=== PATIENT | female | born 1980 | race Caucasian/White ===

== ENCOUNTER 2017-06-21 12:41 | Outpatient (CLI) | payer BC ==
--- NOTE | 2017-06-21 15:22 | MRI ---
MRI LEFT KNEE WITHOUT CONTRAST: Date: 06/21/17 CLINICAL HISTORY: M25.562. Dislocated left knee in March. Left knee pain ever since. COMPARISON: Radiographs dated 03/16/17. FINDINGS: Medial Meniscus: Intact. Lateral Meniscus: Intact. ACL, PCL, and LCL: Intact. MCL: Healing low grade partial tear proximal fibers. Medial retinaculum is also partially torn at the med ial femoral condyle, as well as high signal at the insertion of the medial patella. Extensor Mechanism: Quadriceps tendon and patellar tendon are intact. Bones: There is an impaction fracture of the lateral femoral condyle from transient lateral patellar disloc ation. Also, impaction fracture of medial patellar facet. No subchondral bone plate irregularity. Ov erlying cartilage is intact. There is also a fracture of the articular surface of the lateral most l ateral femoral condyle with edema. This is of the suprameniscal lateral femoral condyle. This appear s somewhat separate from the lateral femoral condylar contusion. There also appears to be a healing impacted subchondral fracture of the lateral tibial plateau. This is linear in nature and best seen on series 5, image 16. Cartilage: Patellofemoral compartment: Intact. Medial compartment: Intact. Lateral compartment: Intact. IMPRESSION: 1. Evidence of reduced healing lateral transient patellar dislocation with mild edema of the medial retinaculum and MPFL, along with healing contusions of the medial patellar facet and the lateral fe moral condyle. 2. Fracture of the cortex of the lateral most lateral femoral condyle which is suprameniscal at the level of the lateral meniscal body with mild underlying edema. There is also a healing impaction fr acture of the lateral tibial plateau deep to the subchondral bone plate. POS: [facility]
== END 2017-06-21 12:42 | disposition home or self-care (01) ==
LOC: SCSMRI 12:41
PROVIDERS: ATTEND Orthopaedic Surgery
DX: M25.662 Stiffness of left knee, not elsewhere classified (principal); S83.015D Lateral dislocation of left patella, subsequent encounter; S72.422D Displaced fracture of lateral condyle of left femur, subsequent encounter for closed fracture with routine healing; S82.142D Displaced bicondylar fracture of left tibia, subsequent encounter for closed fracture with routine healing

== ENCOUNTER 2018-01-24 17:29 | Emergency (ER) | payer BC ==
[2018-01-24 18:35] LABS: #Eosinphils 0.1 thou/uL (0.0-0.7); #Lymphocytes 3.3 thou/uL (1.20-3.40); #Monocytes 1.2 thou/uL (0.11-0.59); #Neutrophils 6.3 thou/uL (1.40-6.50); %Basophils 0.3 % (0.0-1.0); %Eosinophils 0.8 % (0.0-10.0); %Lymphocytes 30.2 % (21.0-51.0); %Monocytes 11.3 % (0.0-10.0); %Neutrophils 57.4 % (42.0-75.0); Hemoglobin 15.6 g/dL (12.0-16.0); Mean Corpuscular HGB CONC 34.2 g/dL (32.0-36.0); Mean Corpuscular Hemoglobin 28.1 pg (27.0-31.0); Mean Platelet Volume 6.3 fL (7.4-10.4); Platelet Count 540 thou/uL (130-400); RBC Distribution Width 12.3 % (11.5-14.5); Red Blood Cell (RBC) Count 5.55 mill/uL (4.20-5.40); White Blood Cell (WBC) Count 10.9 thou/uL (4.8-10.8)
[2018-01-24] MEDS ORDERED: Meclizine HCl 25 MG TAB ONE (18:35)
[2018-01-24] MEDS ORDERED: Acetaminophen 500 MG TAB ONE (18:42)
[2018-01-24] MEDS ORDERED: Magnesium Sulfate 2 GM/100 ML BAG ONE (18:42)
[2018-01-24] MEDS ORDERED: methylPREDNISolone Sod Succ/PF 125 MG/2 ML VIAL ONE (18:42)
[2018-01-24] MEDS ORDERED: Sterile Water 10 ML ONE (18:43)
[2018-01-24 18:53] LABS: BHCG - Serum Negative (NEGATIVE); Pregs Control Background? CLEAR/WHITE (CLR/WHITE); Pregs Control Bar Appear? YES (CONTROL BAR)
[2018-01-24 18:56] LABS: ALT (SGPT) 13 U/L (8-55); AST (SGOT) 14 U/L (5-34); Albumin 4.3 g/dL (3.5-5.0); Alkaline Phosphatase 74 U/L (40-150); Anion Gap 16 mmol/L (10-20); BUN (Urea Nitrogen) 14 mg/dL (7.0-18.7); Bilirubin, Total 0.2 mg/dL (0.2-1.2); Calc. Creatinine Clearance 0 mL/min (70-130); Calcium 9.8 mg/dL (7.8-10.44); Carbon Dioxide 23 mmol/L (22-29); Chloride 101 mmol/L (98-107); Estimated GFR-MDRD 88; Globulin 3.9 g/dL (2.4-3.5); Glucose 95 mg/dL (70-105); Potassium 3.7 mmol/L (3.5-5.1); Protein, Total 8.2 g/dL (6.0-8.3); Sodium 136 mmol/L (136-145)
[2018-01-24 19:13] LABS: Bilirubin Negative (Negative); Blood, Urine Moderate (Negative); Clarity CLEAR (Clear); Glucose, Urine (Dipstick) Negative (Negative); Leukocyte Negative (Negative); Nitrite Negative (Negative); Protein, Urine (Dipstick) Negative (Neg-Trace); Specific Gravity, Urine 1.007 (1.002-1.036); Urobilinogen 0.2 mg/dL (0.2-1.0)
[2018-01-24 19:18] LABS: Bacteria/HPF None Seen HPF (None Seen); Hyaline Casts/LPF 0-3 HYALINE CAST LPF (0-3 Hyaline); Squamous Epithelial None Seen HPF (0-3); WBC/HPF None Seen HPF (0-3)
--- NOTE | 2018-01-24 19:56 | CT ---
CT BRAIN NONCONTRAST: 01/24/18 HISTORY: 37-year-old female with dizziness and headache. FINDINGS: The ventricles are normal in size and configuration. There is no midline shift or any other mass eff ect. There is no evidence of acute intracranial hemorrhage, large cortical infarct, or extraaxial fl uid collection. The hamlin matter /white matter differentiation is maintained. The calvarium is intac t. The tympanomastoid cavities, and the upper portions of the paranasal sinuses included in these im ages, are grossly clear. IMPRESSION: Normal. jn [] POS: [facility]
[2018-01-24] MEDS ORDERED: Ketorolac Tromethamine 30 MG/ML VIAL ONE ×2 (20:45)
== END 2018-01-24 21:00 | disposition home or self-care (01) ==
LOC: ERS 17:29
DX: R51 Headache (principal); R42 Dizziness and giddiness; E03.9 Hypothyroidism, unspecified; F32.9 Major depressive disorder, single episode, unspecified; F41.9 Anxiety disorder, unspecified; Z79.899 Other long term (current) drug therapy
CPT/HCPCS: 36415; 70450; 80053; 81003; 81015; 84703; 85025; 93005; 96361; 96365; 96375; A4216; J1885; J2930; J3475

== ENCOUNTER 2018-06-19 07:03 | Day surgery (SDC) | payer BC ==
[2018-06-19 10:24] LABS: CSF, Glucose 55 mg/dl (40-70); CSF, Protein 29 mg/dL (15-40)
[2018-06-19 10:48] LABS: Color Of CSF Supernatant COLORLESS (Colorless); Tube # 2; Unspun CSF Color COLORLESS (Colorless)
[2018-06-19 10:50] VITALS: TEMP 98.5
[2018-06-19 11:21] LABS: CSF Source CSF; Clarity Clear (Clear); Tube # 4; WBC/NonHematics Count - Manual 0 /cumm (0-5)
[2018-06-19 11:22] LABS: RBC Count - Manual 93 /cumm (None Seen)
--- NOTE | 2018-06-19 11:54 | RAD ---
LUMBAR PUNCTURE WITH FLUOROSCOPY: HISTORY: Evaluate CSF. Persistent daily headaches. EXPOSURE: 2.6 minutes, 242.2 mcg/m2. FINDINGS: Initial district scout executive lumbar spine radiograph demonstrates 5 lumbar-type vertebral bodies. Vertebral body he ight is maintained and the disk space heights are preserved. No malalignment. Successful lumbar puncture. A total of 10 cc of clear CSF was acquired. Opening pressures 14 cm of water. TECHNIQUE: Consent was obtained to perform a fluoroscopic-guided lumbar puncture. The patient's back was evalua hetal. Initially, the L3-L4 level was deemed appropriate. The skin was prepped and draped in sterile fashion. 1% Lidocaine, buffered with sodium bicarbonate, was used for local anesthesia. Under fluor oscopic guidance, a 22 gauge spinal needle was advanced into the central spinal canal. Despite multi ple attempts, CSF could not be acquired. Therefore, the L2-L3 level is deemed appropriate. The skin was prepped and draped in sternal fashion. 1% Lidocaine, buffered with sodium bicarbonate, was used for local anesthesia. Under fluoroscopic guidance, a 22-gauge needle was advanced into the CSF spac e. Opening pressure was 14 cm of water. A total of 10 cc of clear CSF was acquired. The patient to lerated the procedure well. No immediate or postprocedure complications. IMPRESSION: 1. Successful lumbar puncture. 2. Opening pressures 14 cm of water. POS: [facility]
== END 2018-06-19 10:30 | disposition home or self-care (01) ==
LOC: RAD 07:03
PROVIDERS: ATTEND Student in an Organized Health Care Education/Training Program
PROC: 009U3ZX Drainage of Spinal Canal, Percutaneous Approach, Diagnostic (ICD-10-PCS; principal; 2018-06-19)
PROC: B01B1ZZ Fluoroscopy of Spinal Cord using Low Osmolar Contrast (ICD-10-PCS; principal; 2018-06-19)
DX: G44.52 New daily persistent headache (NDPH) (principal); G43.019 Migraine without aura, intractable, without status migrainosus; E03.9 Hypothyroidism, unspecified; Z79.899 Other long term (current) drug therapy; Z88.8 Allergy status to other drugs, medicaments and biological substances
CPT/HCPCS: 62270; 82945; 84157; 84702; 89051

== ENCOUNTER 2018-06-21 10:43 | Emergency (ER) | payer BC | END 2018-06-21 11:30 | disposition admitted as inpatient to this hospital (09) | LOC: ERS 10:43 | DX: G97.1 Other reaction to spinal and lumbar puncture (principal); F41.9 Anxiety disorder, unspecified; F32.9 Major depressive disorder, single episode, unspecified; E03.9 Hypothyroidism, unspecified | CPT/HCPCS: 62272; 99285 ==

== ENCOUNTER 2018-07-10 07:53 | Outpatient (CLI) | payer BC ==
--- NOTE | 2018-07-10 10:16 | RAD ---
CERVICAL SPINE 4 VIEWS: DATE: 07/10/2018. HISTORY: A 38-year-old female with migraine headaches and neck pain. FINDINGS: Cervical vertebral body height appears normal. No anterolisthesis or retrolisthesis. No prevertebra l soft tissue swelling. There is facet hypertrophy at C6-7 and C7-T1. Open mouth odontoid view demonstrates a normal-appeari ng dens in C1-2 articulation. IMPRESSION: No acute findings. POS: [facility]
== END 2018-07-10 07:54 | disposition home or self-care (01) ==
LOC: BICRAD 07:53
PROVIDERS: ATTEND Chiropractor
DX: M54.2 Cervicalgia (principal); R51 Headache
CPT/HCPCS: 72040

== ENCOUNTER 2019-04-26 09:06 | Outpatient (CLI) | payer BC ==
--- NOTE | 2019-04-26 10:57 | CT ---
CT Stone Protocol 04/26/2019 12:00 AM HISTORY: Microhematuria. COMPARISON: 03/15/2019 Technique: Multiple contiguous axial CT images are obtained through the abdomen and pelvis without IV contrast. Coronal reformats are provided. FINDINGS: This examination is limited for the evaluation of solid organs and vascular structures due to the lac k of intravenous contrast. Lower Chest: Visualized lung bases are clear. Abdomen: Liver: Grossly normal nonenhanced CT appearance. Gallbladder: Within normal limits for CT imaging. Pancreas: Grossly normal nonenhanced CT appearance. Spleen: Grossly normal nonenhanced CT appearance. Adrenals: Grossly normal nonenhanced CT appearance. Kidneys: There are nonobstructing bilateral renal calculi, stable from prior exam. Largest calculus i s seen in the superior pole left kidney measuring approximately 4 mm. No hydronephrosis is seen. Ureters: No ureteral calculus is seen.. Pelvis: Urinary bladder: Decompressed but otherwise grossly within normal limits for Reproductive Organs: No pelvic masses. Lymph Nodes: No enlarged lymph nodes. Bowel: The transverse colon is redundant and extends into the pelvis. Small amount of retained fecal material is seen throughout the colon. Small bowel loops are normal in caliber. Appendix: Not definitely visualized, but there are no secondary signs to suggest appendicitis. Peritoneum: No free fluid, free air, or fluid collection. Retroperitoneum: within normal limits. Vessels: Abdominal aorta is normal in caliber.. Abdominal Wall: within normal limits. Bones: Degenerative changes are seen at the lumbosacral junction. No suspicious lytic or sclerotic os seous lesions are identified. IMPRESSION: 1. Stable nonobstructing bilateral renal calculi. 2. CT abdomen and pelvis is overall stable when compared to the prior exam.
== END 2019-04-26 09:07 | disposition home or self-care (01) ==
LOC: CT 09:06
PROVIDERS: ATTEND Urology
DX: N20.0 Calculus of kidney (principal)
CPT/HCPCS: 74176

== ENCOUNTER 2019-05-19 14:12 | Emergency (ER) | payer BC ==
[2019-05-19] MEDS ORDERED: Ketorolac Tromethamine 30 MG/ML VIAL ONE (15:27)
--- NOTE | 2019-05-19 15:37 | RAD ---
LUMBAR SPINE THREE VIEWS: HISTORY: Low back pain. FINDINGS: No fracture, subluxation or bony destruction is identified. POS: [facility]
== END 2019-05-19 16:13 | disposition home or self-care (01) ==
LOC: ERS 14:12
DX: G89.29 Other chronic pain (principal); M54.5 Low back pain; E03.9 Hypothyroidism, unspecified; F41.9 Anxiety disorder, unspecified; F32.9 Major depressive disorder, single episode, unspecified; Z79.899 Other long term (current) drug therapy
CPT/HCPCS: 72100; 96372; J1885

== ENCOUNTER 2019-07-30 13:24 | Outpatient (CLI) | payer BC ==
--- NOTE | 2019-07-30 15:27 | MRI ---
MRI lumbar spine noncontrast: HISTORY: Back pain times months. COMPARISON: None FINDINGS: Appropriate T1 marrow signal intensity of the lumbar vertebra. Lumbar spine vertebral body height is maintained. No fracture. No significant STIR hyperintensity to suggest vertebral body edema or ligamentous injury. Appropriate signal intensity visualized paraspinal muscles and solid organs. Conus medullaris terminates at the inferior aspect of T12. T12-L1:Adequate disc hydration. No significant central canal stenosis or significant neural foraminal narrowing L1-L2:Adequate disc hydration. No significant central canal stenosis or significant neural foraminal narrowing. L2-L3:Adequate disc hydration. No significant central canal stenosis or significant neural foraminal narrowing. L3-L4:Desiccation with mild loss of disc space height. There is a central/left subarticular disc prot rusion along with a small focus of disc material encroaching into the right subarticular zone. Overall there is mild central canal stenosis. There is mass effect and partial obscuration of the tra versing right L4 nerve root. Mass effect and near complete obscuration of traversing left L4 nerve root. Mild bilateral foraminal narrowing predominantly due to disc material L4-L5:Desiccation with moderate loss of disc space height. Broad-based disc bulge encroaches upon bot h subarticular zones. Partial obscuration of bilateral traversing L5 nerve roots. Central disc protrusion results in mild stenosis of the thecal sac. Mild bilateral neural foraminal narrowing due to disc material L5-S1:Desiccation with moderate loss of disc space height. Broad-based disc bulge abuts the thecal sa c. Disc material abuts the ventral thecal sac without significant mass effect. There is disc material in both subarticular zones, right greater than left. There is contact upon without obscurati on of bilateral traversing S1 nerve root. Mild bilateral foraminal narrowing. IMPRESSION: 1. Degenerative changes of the lumbar spine as described above. 2. Disc desiccation at L3-L4, L4-L5 and L5-S1. Narrowing of bilateral subarticular zones, left greate r than right L3-L4 with obscuration of bilateral traversing L4 nerve roots, left greater than right. 3. Partial obscuration bilateral traversing L5 nerve roots due to narrowing of bilateral subarticular zones at L4-L5. Transcribed Date/Time: 07/30/2019 3:49 PM
== END 2019-07-30 13:25 | disposition home or self-care (01) ==
LOC: SCSMRI 13:24
PROVIDERS: ATTEND Anesthesiology
DX: M54.17 Radiculopathy, lumbosacral region (principal); M47.816 Spondylosis without myelopathy or radiculopathy, lumbar region; M48.061 Spinal stenosis, lumbar region without neurogenic claudication
CPT/HCPCS: 72148

== ENCOUNTER 2020-04-02 11:53 | Emergency (ER) | payer BC ==
[2020-04-02 12:20] LABS: Bacteria/HPF None Seen HPF (None Seen); Bilirubin Negative (Negative); Blood, Urine 3+ (Negative); Calcium Oxalate Crystals 2+ HPF (None Seen); Clarity Turbid (Clear); Glucose, Urine (Dipstick) Normal (Negative); Ketone, Urine Trace mg/dL (Negative); Leukocyte 75 Leu/uL (Negative); Nitrite Negative (Negative); Protein, Urine (Dipstick) 20 mg/dL (Neg-Trace); RBC/HPF Greater than 50 HPF (0-3); Specific Gravity, Urine 1.029 (1.002-1.036); Squamous Epithelial 0-3 HPF (0-3)
[2020-04-02 12:21] LABS: #Eosinphils 0.2 thou/uL (0.0-0.7); #Lymphocytes 3.3 thou/uL (1.20-3.40); #Monocytes 0.9 thou/uL (0.11-0.59); %Eosinophils 1.5 % (0.0-10.0); %Lymphocytes 22.9 % (21.0-51.0); %Monocytes 6.1 % (0.0-10.0); %Neutrophils 69.5 % (42.0-75.0); Hemoglobin 14.1 g/dL (12.0-16.0); Mean Corpuscular HGB CONC 32.9 g/dL (32.0-36.0); Mean Corpuscular Hemoglobin 31.1 pg (27.0-31.0); Mean Corpuscular Volume 94.6 fL (78.0-98.0); Mean Platelet Volume 6.9 fL (7.4-10.4); Platelet Count 432 thou/uL (130-400); Red Blood Cell (RBC) Count 4.54 mill/uL (4.20-5.40); White Blood Cell (WBC) Count 14.4 thou/uL (4.8-10.8)
[2020-04-02 12:24] LABS: Pregnancy Test - Urine (BHCG) Negative (Negative); Pregu Control Background? CLEAR/WHITE (CLR/WHITE); Pregu Control Bar Appear? YES (CONTROL BAR); Specific Gravity 1.029 (1.002-1.036)
[2020-04-02 12:47] LABS: WBC/HPF 0-3 HPF (0-3)
[2020-04-02 12:49] LABS: UA Pathologist Review? Unknown Crystals
[2020-04-02 12:53] LABS: ALT (SGPT) 9 U/L (8-55); AST (SGOT) 9 U/L (5-34); Albumin 3.7 g/dL (3.5-5.0); Alkaline Phosphatase 64 U/L (40-110); Anion Gap 11 mmol/L (10-20); BUN (Urea Nitrogen) 21 mg/dL (7.0-18.7); Bilirubin, Total 0.2 mg/dL (0.2-1.2); Calc. Creatinine Clearance 0 mL/min (70-130); Calcium 9.1 mg/dL (7.8-10.44); Carbon Dioxide 23 mmol/L (22-29); Chloride 109 mmol/L (98-107); Estimated GFR-MDRD 73; Globulin 2.8 g/dL (2.4-3.5); Glucose 99 mg/dL (70-105); Lipase 63 U/L (8-78); Potassium 3.9 mmol/L (3.5-5.1); Protein, Total 6.5 g/dL (6.0-8.3); Sodium 139 mmol/L (136-145)
[2020-04-02] MEDS ORDERED: Tamsulosin HCl 0.4 MG CAP PO SCH (14:45)
--- NOTE | 2020-04-03 09:30 | CT ---
EXAM: ABDOMEN AND PELVIC CT SCAN WITHOUT IV CONTRAST: 04/02/20 HISTORY: Abdominal pain. history of kidney stones. COMPARISON: 04/26/19. FINDINGS: Lung bases are clear. The visualized liver, gallbladder, pancreas, spleen, adrenal glands are unremar kable. Several nonobstructing left renal calculi with dilatation of the left upper renal collecting s ystem and left ureter down in the pelvis. There appears to be one obstructing calculus measuring christine roximately 0.3 x 0.6 cm in the distal left ureter with a smaller 0.2 cm somewhat more proximal in the left ureter, both in the pelvis. No CT evidence for acute appendicitis. No bowel obstruction. The ce cum and transverse colon are in a very low position, actually in the pelvis. No abscess, adenopathy, or abnormal fluid collection. IMPRESSION: 1. Two distal left ureteral calculi with result in obstruction. 2. Several nonobstructing left renal calculi. 3. No evidence for other significant acute process. POS: [facility]
== END 2020-04-02 16:07 | disposition home or self-care (01) ==
LOC: ERS 11:53
DX: N20.2 Calculus of kidney with calculus of ureter (principal); E03.9 Hypothyroidism, unspecified; F41.9 Anxiety disorder, unspecified; F32.9 Major depressive disorder, single episode, unspecified; Z79.899 Other long term (current) drug therapy
CPT/HCPCS: 36415; 74176; 80053; 80500; 81003; 81015; 81025; 83690; 85025; 87086; 96360; 96361

== ENCOUNTER 2020-11-26 12:42 | Outpatient (CLI) | payer BC | END 2020-11-26 12:43 | disposition home or self-care (01) | LOC: MRI 12:42 | DX: M47.26 Other spondylosis with radiculopathy, lumbar region (principal) | CPT/HCPCS: 72148 ==

== ENCOUNTER 2021-06-01 11:52 | Outpatient (CLI) | payer BC | END 2021-06-01 11:53 | disposition home or self-care (01) | LOC: BICRAD 11:52 | PROVIDERS: ATTEND Nurse Practitioner Family | DX: M54.12 Radiculopathy, cervical region (principal) | CPT/HCPCS: 72040 ==

== ENCOUNTER 2021-12-03 15:07 | Outpatient (CLI) | payer BC | END 2021-12-03 15:08 | disposition home or self-care (01) | LOC: BICRAD 15:07 | PROVIDERS: ATTEND Internal Medicine Rheumatology | DX: M46.1 Sacroiliitis, not elsewhere classified (principal); Z84.0 Family history of diseases of the skin and subcutaneous tissue | CPT/HCPCS: 72202 ==

== ENCOUNTER 2022-06-17 13:27 | Outpatient (CLI) | payer BC | END 2022-06-17 13:28 | disposition home or self-care (01) | LOC: BICMAMMO 13:27 | PROVIDERS: ATTEND Family Medicine | DX: Z12.31 Encounter for screening mammogram for malignant neoplasm of breast (principal) | CPT/HCPCS: 77063; 77067 ==

== ENCOUNTER 2022-07-08 13:25 | Outpatient (CLI) | payer BC | END 2022-07-08 13:26 | disposition home or self-care (01) | LOC: MRI 13:25 | PROVIDERS: ATTEND Clinical Nurse Specialist Medical-Surgical | DX: M47.22 Other spondylosis with radiculopathy, cervical region (principal); M47.816 Spondylosis without myelopathy or radiculopathy, lumbar region; M47.815 Spondylosis without myelopathy or radiculopathy, thoracolumbar region; M47.27 Other spondylosis with radiculopathy, lumbosacral region | CPT/HCPCS: 72141; 72148 ==

== ENCOUNTER → 2023-06-16 | Day surgery (SDC) | payer BC ==
[~2023-06-16] MED LIST: Lidocaine Jelly 2% Urojet 10 ML ONE
== END ==
LOC: SDC 12:45
PROVIDERS: ATTEND Internal Medicine Gastroenterology
PROC: 0DJ08ZZ Inspection of Upper Intestinal Tract, Via Natural or Artificial Opening Endoscopic (ICD-10-PCS; principal; 2023-06-16)
DX: K21.9 Gastro-esophageal reflux disease without esophagitis (principal); J39.2 Other diseases of pharynx; K58.9 Irritable bowel syndrome, unspecified; F32.A Depression, unspecified; F41.9 Anxiety disorder, unspecified; G43.909 Migraine, unspecified, not intractable, without status migrainosus; M19.90 Unspecified osteoarthritis, unspecified site; K22.89 Other specified disease of esophagus; Z91.041 Radiographic dye allergy status; Z79.899 Other long term (current) drug therapy
CPT/HCPCS: 91034; J2001

== ENCOUNTER 2023-07-14 12:31 | Outpatient (CLI) | payer BC | END 2023-07-14 12:32 | disposition home or self-care (01) | LOC: BICMAMMO 12:31 | PROVIDERS: ATTEND Family Medicine | DX: Z12.31 Encounter for screening mammogram for malignant neoplasm of breast (principal) | CPT/HCPCS: 77063; 77067 ==